=== PATIENT | male | born 1955 | race Caucasian/White ===

== ENCOUNTER → 2019-02-25 | Day surgery (SDC) | payer BC, MEDICARE ==
[~2019-02-25] MED LIST: ALBUTEROL SULFATE 2.5 MG/3 ML NEBU. NEB PRN; ALLO300T PO; ATOR40TA PO; ATROPINE 0.5 MG/5 ML DISP.SYRIN. IV PRN; CARV12.5 PO; CARV25TA2 PO; DILT120C99 PO; FENO145T30 PO; FURO-68 PO; FURO80TA72 PO; IV RINGERS SOLUTION,LACTATED 1,000 ML IV SCH; LISI-379 PO; MIDAZOLAM HCL PF 2 MG/2 ML VIAL. IV PRN; MULT-245 PO; OMEP40CA2 PO; ONDANSETRON PF 4 MG/2 ML VIAL. IV PRN; PHENOL ORAL SPRAY 177ML BOTTLE. MM PRN; POTA20TA82 PO; PROPOFOL 20 ML IV ONE; PROPOFOL 40 ML IV ONE; TIOT18CA IH; TRIA1CAP PO; WARF10TA45 PO; WARF3TAB50 PO; diphenhydrAMINE 50 MG/ML VIAL IV PRN
[2019-02-25 13:30] VITALS: BP 140/59
== END ==
LOC: SURG 10:40
PROVIDERS: ATTEND Internal Medicine Gastroenterology
DX: R19.5 Other fecal abnormalities (principal); K63.5 Polyp of colon; K57.30 Diverticulosis of large intestine without perforation or abscess without bleeding; E78.5 Hyperlipidemia, unspecified; I48.91 Unspecified atrial fibrillation; J44.9 Chronic obstructive pulmonary disease, unspecified; M10.9 Gout, unspecified; K21.9 Gastro-esophageal reflux disease without esophagitis; I11.0 Hypertensive heart disease with heart failure; I50.9 Heart failure, unspecified; E11.9 Type 2 diabetes mellitus without complications; E66.9 Obesity, unspecified; Z68.37 Body mass index [BMI] 37.0-37.9, adult; Z96.652 Presence of left artificial knee joint; Z96.643 Presence of artificial hip joint, bilateral; Z98.890 Other specified postprocedural states; Z86.010 Personal history of colon polyps; Z88.8 Allergy status to other drugs, medicaments and biological substances; Z79.84 Long term (current) use of oral hypoglycemic drugs
CPT/HCPCS: 45385; J2704; J7120